=== PATIENT | male | born 1950 | race Caucasian/White ===

== ENCOUNTER → 2019-06-22 | Day surgery (SDC) | payer OTHER ==
[2019-06-18 11:09] LABS: BASOPHILS # (AUTO) 0.1 (0.0-0.1); BASOPHILS % 1.4 % (0.0-1.0); EOSINOPHILS # (AUTO) 1.3 (0.0-0.4); EOSINOPHILS % 14.1 % (0.0-6.0); HEMOGLOBIN 15.3 g/dL (14.0-18.0); LYMPHOCYTES # (AUTO) 1.2 (1.0-3.2); LYMPHOCYTES % 12.8 % (18.0-39.1); MEAN CORPUSCULAR HEMOGLOBIN 30.9 pg (28-32); MEAN CORPUSCULAR HGB CONC 33.3 g/dL (31-35); MEAN CORPUSCULAR VOLUME 92.9 fL (81-99); MONOCYTES # (AUTO) 0.7 (0.2-0.8); MONOCYTES % 7.2 % (4.4-11.3); NEUTROPHILS # (AUTO) 6.1 (2.1-6.9); NEUTROPHILS % 63.9 % (38.7-80.0); PLATELET COUNT 199 x10e3/uL (140-360); RED BLOOD COUNT 4.95 x10e6/uL (4.3-5.7); RED CELL DISTRIBUTION WIDTH 13.4 % (11.7-14.4)
[2019-06-18 11:22] LABS: INR 0.94; PROTHROMBIN TIME 13.1 seconds (11.9-14.5)
[2019-06-18 11:23] LABS: PARTIAL THROMBOPLASTIN TIME 29.1 seconds (23.8-35.5)
[2019-06-18 11:30] LABS: ALANINE AMINOTRANSFERASE 14 IU/L (0-55); ALBUMIN 3.6 g/dL (3.5-5.0); ALBUMIN/GLOBULIN RATIO 1.2 (0.8-2.0); ALKALINE PHOSPHATASE 124 IU/L (40-150); ANION GAP 14.7 mmol/L (8-16); BLOOD UREA NITROGEN 20 mg/dL (7-26); BUN/CREATININE RATIO 17 (6-25); CALCIUM 9.6 mg/dL (8.4-10.2); CARBON DIOXIDE 27 mmol/L (22-29); CHLORIDE 105 mmol/L (98-107); CHOL/HDL RATIO 3.1 (3.9-4.7); CREATININE, SERUM 1.18 mg/dL (0.72-1.25); EST GLOMERULAR FILTRATION RATE > 60 ML/MIN (60-); GLUCOSE 79 mg/dL (74-118); POTASSIUM 4.7 mmol/L (3.5-5.1); SODIUM 142 mmol/L (136-145)
[2019-06-22] VITALS (14 sets, daily range): BP systolic 135–179; BP diastolic 81–98
[~2019-06-22] VITALS: Ht 182.9 cm; Wt 93.0 kg
[~2019-06-22] MED LIST: ATORVASTATIN CA20 MG PO; CLOPIDOGREL75 MG PO; FENTANYL CITRATE/PF 100MCG/2 ML INJ ONE; HEPARIN SOD/SOD CHLORIDE 2,000 ML ONE; HUMULIN R100 UNIT/2 SUBD; HYDRALAZINE HCL 20 MG/ML VIAL ONE; IOPAMIDOL 300MG/ML 100 ML INFUS..BTL IV ONE; LANTUS 3ML100 UNITS/ SUBD; LASIX20 MG PO; LIDOCAINE HCL 2% LOCAL 20 ML VIAL ONE; LISINOPRIL10 MG PO; METOPROLOL SUCC25 MG PO; MIDAZOLAM HCL 2 MG/2 ML VIAL ONE; MULTI-VITAMIN1 EACH; PEPCID20 MG PO; SODIUM CHLORIDE 0.9% 1000ML 1,000 ML ONE; VERAPAMIL HCL 2.5 MG/ML 2 ML VIAL ONE
--- NOTE | 2019-06-22 13:00 | NUR ---
Assisted patient with urinal. Patient void 350ml via urinal.
--- NOTE | 2019-06-22 14:00 | NUR ---
Assisted patient with urinal. Patient void 200ml via urinal. Patient continues to lay flat with right leg straight.
--- NOTE | 2019-06-22 14:35 | NUR ---
Patient void 250ml via urinal.
--- NOTE | 2019-06-22 14:37 | NUR ---
Left message with Dr. Paniagua regarding Blood pressure 182/90 Heart rate 81 and 99% oxygen on room air.
--- NOTE | 2019-06-22 14:44 | NUR ---
Dr. Paniagua ordered hydralazine 10mg IV one time now.
--- NOTE | 2019-06-22 15:30 | NUR ---
Dr. Paniagua ordered 3 hours bedrest after sheath pull.
--- NOTE | 2019-06-22 16:20 | NUR ---
pATIENT VOID 225 ML OF URINE VIA URINAL.
--- NOTE | 2019-06-22 18:30 | NUR ---
Assisted patient with getting dressed. Patient ambulated with standby assistance to restroom and voided without difficulty. Patient ambulated with standby assistance back to room. Patient tolerated well. Dressing to right groin remains clean,dry, and intact. Right groin is soft upon palpation.
--- NOTE | 2019-06-22 18:32 | NUR ---
IV to left wrist removed and dressing placed per protocol. Dressing to left wrist is clean,dry, and intact. Dressing to right groin is clean,dry, and intact. Right groin appears to be without signs or symptoms of active bleeding at this time. 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 Patient discharged with belongings. No distress noted at time of discharge.
--- NOTE | 2019-06-22 21:36 | Operative Report ---
DATE OF PROCEDURE: 06/22/2019 SURGEON: Jorge Luis Willard MD PERIPHERAL ANGIOGRAPHY AND INTERVENTION PROCEDURE INDICATION: Peripheral arterial disease suspected by arterial Doppler, claudication and lower extremity edema and venous insufficiency. PROCEDURES PERFORMED: 1. Abdominal aortogram. 2. Selective lower extremity angiography. 3. Attempted and aborted left posterior tibial HONEY GRADER AND BLENDER. 4. Third-order catheter placement from right femoral artery to left femoral artery. 5. Additional third-order catheter placement from right femoral artery to left popliteal artery. 6. Manual pressure hemostasis to the right femoral site. PROCEDURE COMPLICATIONS: None. ESTIMATED BLOOD LOSS: Less than 15 mL. PROCEDURE SUMMARY: After consent was obtained, the patient was prepped and draped in a sterile fashion. The right femoral site was locally infiltrated with 2% lidocaine with micropuncture kit. A 6-Tamazight sheath was placed. An Omni Flush catheter was positioned in the distal descending abdominal aorta. Angiography was performed revealing patent renal arteries with the left renal artery poorly visualized overall and luminal irregularities noted in the infrarenal aorta as well as the iliac vessels bilaterally. Additional selective angiography was performed to each both lower extremities with catheter positioned in the left femoral artery and then catheter advanced to the left popliteal artery as well as sheath retraction to the right external iliac artery for the right lower extremity selective angiography. The following findings were observed: The right common femoral artery have less than 30% stenosis. The right profunda femoris artery has focal areas of 60% stenosis. The right SFA has 30% stenosis throughout. The right popliteal artery has 50% focal stenosis. The right anterior tibial artery seemed to be occluded in distal segment with bridging collaterals, although fully visualized, seemed to be filling distally. The right TP trunk is patent. The right peroneal artery has 80% focal stenosis. The right posterior tibial artery is 100% occluded throughout all of the segments. The left common femoral artery has less than 30% stenosis of left profunda femoris, has less than 50% stenosis of the left SFA and areas of 30% tandem lesions throughout. The left popliteal artery has less than 30% stenosis. The left anterior tibial artery has less than 30% stenosis. The left TP trunk has less than 30% stenosis. The left peroneal artery has focal 50% to 60% stenosis. It is small in caliber throughout and the left posterior tibial artery proximal to distal without good outflow. Attempted intervention was performed after heparin was administered to maintain ACT over 250. TIG catheter was positioned along with a Roadrunner wire proximal into the TP trunk and the ostium of the posterior tibial artery was interrogated with the wire several times, unfortunately without successful re-wiring of this artery given the complete extension of occlusion and poor outflow. Further attempts were aborted. This vessel is not amenable for pedal retrograde revascularization either. CONCLUSION: Severe lgkho-fyk-kxyi vessel PAD with occluded PTs bilaterally and acute tibial distally on the right peroneal artery, severely stenosis on the right and moderate stenosis on the left. RECOMMEND: Staged intervention to the right anterior tibial and peroneal artery to be considered at a later date. Exercise program considered vessel candidacy. MD NATY Díaz/ROML /[id number]
--- NOTE | 2019-06-22 22:40 | Operative Report ---
DATE OF PROCEDURE: 06/22/2019 SURGEON: Jorge Luis Willard MD PROCEDURE INDICATION: Peripheral arterial disease with claudication, abnormal Doppler ultrasound suggesting a zrqwf-ejq-goqz level disease and associated edema and venous insufficiency. PROCEDURE PERFORMED: 1. Abdominal aortogram. 2. Selective lower extremity angiography, bilateral. 3. Third-order catheter placement from right femoral artery to left femoral artery. 4. Additional third-order catheter placement from right femoral artery to left popliteal artery. 5. Attempted and aborted ABSTRACT CLERK of the right posterior tibial artery. PROCEDURE COMPLICATIONS: None. ESTIMATED BLOOD LOSS: Less than 15 mL. PROCEDURE SUMMARY: After consent was obtained, the patient was prepped and draped in a sterile fashion. The right femoral site was locally infiltrated with 2% lidocaine and access was obtained with micropuncture kit. A 6-[place] sheath was placed. An Omni Flush catheter was positioned in the distal descending abdominal aorta. Angiography was performed revealing luminal irregularities throughout the infrarenal abdominal aorta and iliac vessels bilaterally. The renal arteries are being patent with the left renal artery poorly visualized overall. Rxbqh-mmn-jqef vessels and infrainguinal ligament vessels were evaluated bilateral with catheter positioning in the left femoral artery and popliteal artery as well as the right external iliac artery. The following findings were noted. The right common femoral artery has less than 30% stenosis. The right profunda femoris artery has multiple areas of 60% narrowing. The right SFA had tandem lesions of 30% throughout. The right popliteal artery had 50% focal stenosis. The right anterior tibial artery in the distal segment seems to be occluded, although not very well visualized, collaterals of bridging type are observed and seen to be filling the distal most segment of it. The TP trunk is patent. The right Jorge Luis Willard MD AFV/MODL /[id number]
== END | disposition home or self-care (01) ==
LOC: CATH LAB 07:21
PROVIDERS: ATTEND Internal Medicine Cardiovascular Disease
DX: I70.203 Unspecified atherosclerosis of native arteries of extremities, bilateral legs (principal); I87.2 Venous insufficiency (chronic) (peripheral); R60.9 Edema, unspecified; Z01.812 Encounter for preprocedural laboratory examination; Z79.02 Long term (current) use of antithrombotics/antiplatelets; Z79.4 Long term (current) use of insulin
CPT/HCPCS: 36415 ×2; 37228; 75625; 80053; 80061; 82948; 83036; 85025; 85610; 85730; C1769 ×2; C1887; J0360; J2001; J2250; J3010; J7030; Q9967

== ENCOUNTER → 2022-02-14 | Day surgery (SDC) | payer MEDICARE, OTHER ==
[2022-02-09 13:35] LABS: BASOPHILS # (AUTO) 0.1 (0.0-0.1); BASOPHILS % 1.4 % (0.0-1.0); EOSINOPHILS # (AUTO) 0.7 (0.0-0.4); EOSINOPHILS % 9.4 % (0.0-6.0); HEMATOCRIT 47.7 % (38.2-49.6); HEMOGLOBIN 15.8 g/dL (14.0-18.0); LYMPHOCYTES # (AUTO) 1.1 (1.0-3.2); LYMPHOCYTES % 13.7 % (18.0-39.1); MEAN CORPUSCULAR HEMOGLOBIN 30.8 pg (28-32); MEAN CORPUSCULAR HGB CONC 33.1 g/dL (31-35); MONOCYTES # (AUTO) 0.5 (0.2-0.8); MONOCYTES % 6.9 % (4.4-11.3); NEUTROPHILS # (AUTO) 5.4 (2.1-6.9); NEUTROPHILS % 68.2 % (38.7-80.0); PLATELET COUNT 230 x10e3/uL (140-360); RED BLOOD COUNT 5.13 x10e6/uL (4.3-5.7); RED CELL DISTRIBUTION WIDTH 13.2 % (11.7-14.4)
[2022-02-09 13:45] LABS: INR 0.95; PROTHROMBIN TIME 13.5 seconds (11.9-14.5)
[2022-02-09 13:46] LABS: PARTIAL THROMBOPLASTIN TIME 27.3 seconds (23.8-35.5)
[2022-02-09 13:53] LABS: ALBUMIN 3.6 g/dL (3.5-5.0); ALBUMIN/GLOBULIN RATIO 1.1 (0.8-2.0); ANION GAP 11.1 mmol/L (8-16); CALCIUM 9.3 mg/dL (8.4-10.2); CHOL/HDL RATIO 2.8 (3.9-4.7); CREATININE, SERUM 1.36 mg/dL (0.72-1.25); POTASSIUM 5.1 mmol/L (3.5-5.1)
[2022-02-14] VITALS (17 sets, daily range): BP systolic 144–167; BP diastolic 80–91
[~2022-02-14] VITALS: Ht 182.9 cm; Wt 88.5 kg
[~2022-02-14] MED LIST changes: +COENZYME Q-1030 MG; +HEPARIN SOD (PORCINE) 1000 UNIT/ML 30ML ONE; -HYDRALAZINE HCL 20 MG/ML VIAL ONE; -IOPAMIDOL 300MG/ML 100 ML INFUS..BTL IV ONE; +IOPAMIDOL 370 MG/ML 200 ML INFUS..BTL INJ ONE; -LIDOCAINE HCL 2% LOCAL 20 ML VIAL ONE; +NITROGLYCERIN/D5W 200 MCG/ML 250 ML ONE
== END | disposition home or self-care (01) ==
LOC: CATH LAB 07:15
PROVIDERS: ATTEND Internal Medicine Cardiovascular Disease
DX: I25.119 Atherosclerotic heart disease of native coronary artery with unspecified angina pectoris (principal); R94.39 Abnormal result of other cardiovascular function study; Z95.5 Presence of coronary angioplasty implant and graft; I10 Essential (primary) hypertension; E78.5 Hyperlipidemia, unspecified; I70.219 Atherosclerosis of native arteries of extremities with intermittent claudication, unspecified extremity; I83.813 Varicose veins of bilateral lower extremities with pain; E11.9 Type 2 diabetes mellitus without complications; Z01.812 Encounter for preprocedural laboratory examination; Z20.822 Contact with and (suspected) exposure to COVID-19; Z79.02 Long term (current) use of antithrombotics/antiplatelets; Z79.4 Long term (current) use of insulin; Z79.899 Other long term (current) drug therapy; Z86.16 Personal history of COVID-19; Z87.891 Personal history of nicotine dependence
CPT/HCPCS: 93458; 93571; C9600; 36415; 76937; 80053; 80061; 85025; 85610; 85730; 92920; 92928; 99152; 99153; C1725; C1769; C1874; C1887; J1644; J2250; J3010; J7030; Q9967; U0002